=== PATIENT | female | born 1990 | race Two or more races ===

== ENCOUNTER 2020-05-01 10:09 | Emergency (ER) | payer OTHER ==
[~2020-05-01] VITALS: Ht 152.4 cm; Wt 48.1 kg
[2020-05-01 10:15] VITALS: BP 144/73
[2020-05-01] MEDS ORDERED: MORPHINE SULFATE INJ 2 MG/ML DISP.SYRIN IM ONE (10:30)
== END 2020-05-01 11:43 | disposition home or self-care (01) ==
LOC: ER 10:09
DX: S80.01XA Contusion of right knee, initial encounter (principal); S80.11XA Contusion of right lower leg, initial encounter; V00.121A Fall from non-in-line roller-skates, initial encounter; Y93.89 Activity, other specified; Y92.89 Other specified places as the place of occurrence of the external cause; Y99.8 Other external cause status
CPT/HCPCS: 73564-TC; 73590-TC